=== PATIENT | male | born 1970 | race Caucasian/White ===

== ENCOUNTER → 2016-09-19 | Outpatient (CLI) | payer OTHER ==
[~2016-09-19] MED LIST: AMR2; AVN4; IBUP-1050 PO; INSUINJ; METFORMIN; WELLBUTRIN; ZANTAC; ZOCOR
[2016-09-19 17:31] LABS: BLOOD UREA NITROGEN 22 mg/dl (7-18); BUN/CREATININE RATIO 14.6 (10-20); CARBON DIOXIDE 28 mmol/L (21-32); CHLORIDE 101 mmol/L (98-107); GLUCOSE 235 mg/dl (70-99); POTASSIUM 4.8 mmol/L (3.5-5.1); SODIUM 137 mmol/L (136-145)
[2016-09-20 06:16] LABS: ESTIMATED AVERAGE GLUCOSE 206 mg/dl; HA1C FLAG Normal (Normal)
== END | disposition home or self-care (01) ==
LOC: C.LABBFT 08:58
PROVIDERS: ATTEND Nurse Practitioner Adult Health
DX: E11.29 Type 2 diabetes mellitus with other diabetic kidney complication (principal); E78.5 Hyperlipidemia, unspecified

== ENCOUNTER → 2016-12-25 | Outpatient (CLI) | payer OTHER ==
[2016-12-25 09:42] LABS: ESTIMATED AVERAGE GLUCOSE 160 mg/dl; HA1C FLAG Normal (Normal)
== END | disposition home or self-care (01) ==
LOC: C.LAB1850 07:06
PROVIDERS: ATTEND Nurse Practitioner Adult Health
DX: N18.9 Chronic kidney disease, unspecified (principal); I12.9 Hypertensive chronic kidney disease with stage 1 through stage 4 chronic kidney disease, or unspecified chronic kidney disease; E78.5 Hyperlipidemia, unspecified; E11.9 Type 2 diabetes mellitus without complications

== ENCOUNTER → 2017-05-07 | Outpatient (CLI) | payer OTHER ==
[2017-05-07 09:52] LABS: ESTIMATED AVERAGE GLUCOSE 166 mg/dl; HA1C FLAG Normal (Normal)
[2017-05-07 10:18] LABS: RATIO 9.9 mcg/mg (0-30.0)
[2017-05-07 10:23] LABS: ALT/SGPT 29 U/L (12-78); BLOOD UREA NITROGEN 32 mg/dl (7-18); BUN/CREATININE RATIO 18.9 (10-20); CALCIUM 9.1 mg/dl (8.5-10.1); CARBON DIOXIDE 26 mmol/L (21-32); CHLORIDE 103 mmol/L (98-107); CHOLESTEROL 118 mg/dl (0-200); GLUCOSE 196 mg/dl (70-99); POTASSIUM 4.6 mmol/L (3.5-5.1); SODIUM 135 mmol/L (136-145); TRIGLYCERIDES 105 mg/dl (0-150); VERY LOW DENSITY LIPOPROT CALC 21 mg/dl
[2017-05-07 10:26] LABS: ALB/GLOB RATIO 1.4 (0.9-2); ALKALINE PHOSPHATASE 85 U/L (45-117); AST/SGOT 15 U/L (15-37); CHOLESTEROL/HDL RATIO 2.6; HDL CHOLESTEROL 45 mg/dl; LDL CHOLESTEROL CALCULATED 52 mg/dl
== END | disposition home or self-care (01) ==
LOC: C.LAB1850 08:35
PROVIDERS: ATTEND Nurse Practitioner Adult Health
DX: E11.9 Type 2 diabetes mellitus without complications (principal); I10 Essential (primary) hypertension; E78.5 Hyperlipidemia, unspecified; R80.9 Proteinuria, unspecified

== ENCOUNTER → 2017-06-02 | Outpatient (CLI) | payer OTHER ==
--- NOTE | 2017-06-02 08:11 | DIAGNOSTIC IMAGING REPORT ---
RENAL ULTRASOUND HISTORY: N18.9 Chronic renal insufficiency COMPARISON: Renal ultrasound 08/28/2012. FINDINGS: Right kidney: 10.7 cm No hydronephrosis. Normal corticomedullary differentiation and cortical thickness. A 1.6 cm lower pole cyst. Left kidney: 10.5 cm. No hydronephrosis. Normal corticomedullary differentiation and cortical thickness. Bladder: No bladder wall thickening. The bilateral ureteral jets were identified. IMPRESSION: A 1.6 cm right renal cyst. Otherwise, normal renal ultrasound. Electronically signed by: Jonny Wray M.D. 06/02/2017 8:09 AM Dictated Date/Time: 06/02/2017 8:05 AM
== END | disposition home or self-care (01) ==
LOC: C.ULTR 07:25
PROVIDERS: ATTEND Nurse Practitioner Adult Health
DX: N18.9 Chronic kidney disease, unspecified (principal)

== ENCOUNTER → 2017-11-06 | Outpatient (CLI) | payer OTHER ==
--- NOTE | 2017-11-06 07:32 | DIAGNOSTIC IMAGING REPORT ---
R EXTREMITY NONVASCULAR LIMITED CLINICAL HISTORY: R22.9 Localized soft tissue swellingPlease schedule either first TECHNIQUE: Ultrasound COMPARISON STUDY: None FINDINGS: Small complex collection medially adjacent to the distal aspect of the right distal fifth metatarsal. This measures 2.5-1.0 cm. Right soft tissue is edematous. Diagnostic considerations include abscess versus hematoma. IMPRESSION: Small complex soft tissue collection immediately adjacent to the distal aspect fifth metatarsal. This potentially represents hematoma versus abscess. The above report was generated using voice recognition software. It may contain grammatical, syntax or spelling errors. Electronically signed by: Polo Cano M.D. 11/06/2017 7:30 AM Dictated Date/Time: 11/06/2017 7:27 AM
== END | disposition home or self-care (01) ==
LOC: C.ULTR 06:49
PROVIDERS: ATTEND Nurse Practitioner
DX: R22.31 Localized swelling, mass and lump, right upper limb (principal)

== ENCOUNTER → 2017-12-31 | Outpatient (CLI) | payer OTHER ==
[2018-01-01 06:39] LABS: HEMOGLOBIN A1C 7.4 % (4.5-5.6)
== END | disposition home or self-care (01) ==
LOC: C.LAB1850 15:18
PROVIDERS: ATTEND Nurse Practitioner Adult Health
DX: E11.9 Type 2 diabetes mellitus without complications (principal)

== ENCOUNTER 2021-05-16 03:09 | Inpatient (IN) ==
[2021-05-16] MEDS ORDERED: ASPIRIN CHEW 324 MG ONE (03:20)
[2021-05-16] MEDS ORDERED: NITROGLYCERIN SL 0.4 MG/TAB TAB ONE (03:21)
[2021-05-16] MEDS ORDERED: NITROGLYCERIN SL 0.4 MG/TAB TAB SL PRN ×2 (03:22→06:00)
[2021-05-16] MEDS ORDERED: ASPIRIN CHEW 324 MG PO STA (03:22)
--- NOTE | 2021-05-16 03:29 | Emergency Department Note ---
History of Present Illness General Chief Complaint: Chest Pain Stated Complaint: TIGHTNESS IN CHEST Time Seen by Provider: 05/16/21 03:16 History of Present Illness Maximum Pain Intensity: 7 This 50-year-old presents to the ER complaining of chest pain that radiates to his shoulders he was nauseated and diaphoretic Location: Chest Quality: Discomfort Severity: Moderate Duration: Today Timing: Today Context: Patient was concerned and came in Modifying factors: better with rest; worse with activity Patient denies abdominal pain, fever, chills, flulike illness, prior heart d isease. He did not check his blood sugars today. His father has heart disease at a young age. No prior stress or echo. Home Medications Medication Instructions Recorded Confirmed Type cholecalciferol (vitamin D3) 50 2,000 units PO QAM #30 tab 07/09/19 03/02/21 History mcg (2,000 unit) tablet fluocinonide 0.05 % topical cream 1 appln TOPICAL TID PRN #1 gm 11/16/19 03/02/21 History cyanocobalamin (vitamin B-12) 100 1,000 mcg PO QAM tab 04/03/20 03/02/21 History mcg tablet sildenafil (pulm.hypertension) 20 20 mg PO DAILY PRN #90 tab 08/28/20 03/02/21 Rx mg tablet insulin detemir U-100 100 unit/mL 40 unit SUBCUT QPM 09/15/20 03/02/21 History (3 mL) subcutaneous pen (Levemir FlexTouch U-100 Insulin) trazodone 100 mg tablet 100 mg PO HS 09/15/20 03/02/21 History lisinopril 20 mg tablet 20 mg PO QPM #90 tab 10/04/20 03/02/21 Rx simvastatin 20 mg tablet 20 mg PO QPM 90 Days #90 tab 10/04/20 03/02/21 Rx dapagliflozin 5 mg tablet (Farxiga) 5 mg PO DAILY #30 tab 12/04/20 03/02/21 Rx pen needle, diabetic 32 gauge x #2 box 01/10/21 03/02/21 Rx 5/32" (BD Geetha 2nd Gen Pen Needle) famotidine 20 mg tablet 20 mg PO BID #180 tab 02/26/21 03/02/21 Rx bupropion HCl 150 mg tablet,12 hr 300 mg PO QAM #180 ea 03/09/21 Rx sustained-release insulin aspart U-100 100 unit/mL See Rx Instructions SUBCUT TID #45 03/09/21 Rx (3 mL) subcutaneous pen (Novolog ml Flexpen U-100 Insulin aspart) Allergies Allergy/AdvReac Type Severity Reaction Status Date / Time azithromycin [From Zithromax] Allergy Rash Verified 05/16/21 05:01 Peanuts Allergy finger Uncoded 12/01/20 14:04 swelling Past Med/Surg History Medical History DM type 2 (diabetes mellitus, type 2) IDDM GERD (gastroesophageal reflux disease) HTN (hypertension) Hyperlipemia Surgical History History of nasal surgery History of tonsillectomy History of wisdom tooth extraction Family History Father Prostate cancer Coronary heart disease Diabetes Mother Diabetes Brother Diabetes Grandfather (Maternal) Diabetes Grandfather (Paternal) Diabetes Grandmother (Paternal) Diabetes Grandmother (Maternal) Diabetes Other No family history of adverse response to anesthesia Denies family history of Ovarian cancer Breast cancer Colorectal cancer Social History Smoking Status: Never smoker Second Hand Exposure: No; Hx Alcohol Use: Yes Alcohol type: beer Hx Substance Use: No Preferred Language: Cape Verdean Communication Ability: Effective Visual Impairment: No Limitations Hearing Ability: Normal Assistance Specialist Required: No Beliefs That Will Affect Care: None marital status: Current Living Situation: Spouse and Family Current Living Situation Comment: lives with and 2 children current occupational status: employed current occupation: [email or web address] Feels Safe at Home: Yes Childhood Exposure to Second-Hand Smoke: Yes caffeine: No during the past year weight has: remained stable Dental Care, Regularly: Yes Physical Activity Frequency: 1-2 Times per Week Seatbelt Use: always Sunscreen Use: Yes Assistive Devices: None Review of Systems A total of 10 systems reviewed and were otherwise negative Physical Exam Vital Signs Vital Signs - 24 hr 05/16/21 03:13 05/16/21 03:27 05/16/21 03:28 Temperature 36 C L Temperature Source Temporal Artery Scan Pulse Rate 54 L 60 Pulse Rate [Right Finger] Pulse Rhythm [Right Finger] Pulse Strength [Right Finger] Respiratory Rate 18 Respiratory Effort / Characteristics Respiratory Depth Respiratory Pattern Blood Pressure 127/78 Blood Pressure [Left Arm] Blood Pressure Mean 94 Blood Pressure Mean [Left Arm] Blood Pressure Position [Left Arm] Pulse Oximetry 98 97 Oxygen Delivery Method Room Air Room Air Room Air Sepsis Recent Fever Within 48 Hours No Sepsis New/Unexplained Change in Mental Status No Sepsis Action Taken by Nursing No Action Required 05/16/21 04:03 05/16/21 04:31 05/16/21 04:43 Temperature Temperature Source Pulse Rate 59 L Pulse Rate [Right Finger] 54 L 61 Pulse Rhythm [Right Finger] Regular Pulse Strength [Right Finger] Normal Respiratory Rate 18 20 16 Respiratory Effort / Characteristics Non-Labored Spontaneous Respiratory Depth Normal Normal Respiratory Pattern Regular Blood Pressure 136/84 Blood Pressure [Left Arm] 131/87 151/91 H Blood Pressure Mean 101 Blood Pressure Mean [Left Arm] 101 111 Blood Pressure Position [Left Arm] Sitting Pulse Oximetry 98 98 98 Oxygen Delivery Method Room Air Room Air Sepsis Recent Fever Within 48 Hours Sepsis New/Unexplained Change in Mental Status Sepsis Action Taken by Nursing 05/16/21 04:45 Temperature Temperature Source Pulse Rate 57 L Pulse Rate [Right Finger] Pulse Rhythm [Right Finger] Pulse Strength [Right Finger] Respiratory Rate 18 Respiratory Effort / Characteristics Respiratory Depth Respiratory Pattern Blood Pressure 136/92 Blood Pressure [Left Arm] Blood Pressure Mean 106 Blood Pressure Mean [Left Arm] Blood Pressure Position [Left Arm] Pulse Oximetry 99 Oxygen Delivery Method Sepsis Recent Fever Within 48 Hours Sepsis New/Unexplained Change in Mental Status Sepsis Action Taken by Nursing VITALS: Vitals are noted on the nurse's note and reviewed by myself. Vital signs stable. GENERAL: Pleasant male who appears in pain, in no acute distress, nondiaphoretic, well-developed well-nourished. SKIN: The skin was without rashes, erythema, edema, or bruising. There is no tenting of the skin. Capillary reflex less than 2 seconds. HEAD: Normocephalic atraumatic. EARS: External auditory canals clear, EYES: Pupils equal round and reactive to light and accommodation. Conjunctivae without injection, sclerae without icterus. Extraocular movements intact. NOSE: Patent, turbinates without inflammation or discharge. MOUTH: Mucous membranes moist. Pharynx without erythema or exudate. Uvula midline. Airway patent. Tongue does not deviate. NECK: Supple without nuchal rigidity. No lymphadenopathy. No thyromegaly. Cervical spine is nontender. No JVD. HEART: Regular rate and rhythm chest nontender to location LUNGS: Clear to auscultation bilaterally without wheezes, rales or rhonchi. No retractions or accessory muscle use. ABDOMEN: Positive bowel sounds x 4. Normal tympanic percussion. Soft, nontender, without masses or organomegaly. Jarivs sign negative. No guarding or rebound tenderness. No CVA tenderness MUSCULOSKELETAL: No muscle atrophy, erythema, or edema noted. NEURO: Patient was alert and oriented to person place and time. Normal sensation to light and sharp touch. No focal neurological deficits. Course Administered Medications Discontinued Medications Aspirin (Aspirin Chew 324 Mg) Confirm Administered Dose 324 mg .ROUTE .STK-MED ONE Stop: 05/16/21 03:21 Last Admin: 05/16/21 03:24 Dose: 324 mg Documented by: [id number] Aspirin (Aspirin Chew 324 Mg) 324 mg PO NOW STA Stop: 05/16/21 03:23 Last Admin: 05/16/21 03:25 Dose: Not Given Documented by: [id number] Nitroglycerin (Nitroglycerin Sl 0.4 Mg/Tab Tab) Confirm Administered Dose 0.4 mg .ROUTE .STK-MED ONE Stop: 05/16/21 03:22 Last Admin: 05/16/21 03:24 Dose: 0.4 mg Documented by: [id number] Medical Decision Making Medical Records Attestation: I reviewed the patient's medical records. Home Medications Current Medication List: was personally reviewed by me Laboratory Data Attestation: I reviewed the patient's lab results. Result diagrams: 05/16/21 03:20 05/16/21 03:20 Labs: Lab Results 05/16/21 05/16/21 05/16/21 Range/Units 03:20 03:20 03:20 WBC 8.98 (4.8-10.8) K/uL RBC 5.40 (4.7-6.1) M/uL Hgb 15.7 (14.0-18.0) g/dL Hct 46.4 (42-52) % MCV 85.9 (80-100) fL MCH 29.1 (25-34) pg MCHC 33.8 (32-36) g/dL RDW Std Deviation 41.0 (36.4-46.3) fL RDW Coeff of Diamond 13.0 (11.5-14.5) % Plt Count 293 (130-400) K/uL MPV 8.5 (7.4-10.4) fL Immature Gran % (Auto) 0.3 % Neut % (Auto) 64.3 % Lymph % (Auto) 23.2 % Zapata % (Auto) 10.0 % Eos % (Auto) 1.9 % Baso % (Auto) 0.3 % Neut # (Auto) 5.77 (1.4-6.5) K/uL Lymph # (Auto) 2.08 (1.2-3.4) K/uL Zapata # (Auto) 0.90 H (0.11-0.59) K/uL Eos # (Auto) 0.17 (0-0.5) K/uL Baso # (Auto) 0.03 (0-0.2) K/uL Immature Gran # (Auto) 0.03 H (0.00-0.02) K/uL APTT 24.8 (21.0-31.0) Seconds PTT Ratio 0.9 Sodium 135 L (136-145) mmol/L Potassium 4.2 (3.5-5.1) mmol/L Chloride 101 (98-107) mmol/L Carbon Dioxide 29 (21-32) mmol/L Anion Gap 5.0 (3-11) BUN 30 H (7-18) mg/dl Creatinine 1.68 H (0.6-1.4) mg/dl Est Cr Clr Drug Dosing 62.5 ml/min Est GFR ( Amer) 54.1 ml/min Est GFR (Non-Af Amer) 46.7 ml/min BUN/Creatinine Ratio 18.0 (10-20) Glucose 176 H (70-99) mg/dl Calcium 10.1 (8.5-10.1) mg/dl Total Bilirubin 0.6 (0.2-1) mg/dl AST 32 (15-37) U/L ALT 30 (12-78) U/L Alkaline Phosphatase 79 (45-117) U/L Troponin I 2.160 H* (0-0.045) ng/ml Total Protein 7.7 (6.4-8.2) gm/dl Albumin 4.3 (3.4-5.0) gm/dl Globulin 3.4 (2.5-4.0) gm/dl Albumin/Globulin Ratio 1.3 (0.9-2) Lipase 110 (73-393) U/L COVID-19 Eval Order 05/16/21 Range/Units 04:08 WBC (4.8-10.8) K/uL RBC (4.7-6.1) M/uL Hgb (14.0-18.0) g/dL Hct (42-52) % MCV (80-100) fL MCH (25-34) pg MCHC (32-36) g/dL RDW Std Deviation (36.4-46.3) fL RDW Coeff of Diamond (11.5-14.5) % Plt Count (130-400) K/uL MPV (7.4-10.4) fL Immature Gran % (Auto) % Neut % (Auto) % Lymph % (Auto) % Zapata % (Auto) % Eos % (Auto) % Baso % (Auto) % Neut # (Auto) (1.4-6.5) K/uL Lymph # (Auto) (1.2-3.4) K/uL Zapata # (Auto) (0.11-0.59) K/uL Eos # (Auto) (0-0.5) K/uL Baso # (Auto) (0-0.2) K/uL Immature Gran # (Auto) (0.00-0.02) K/uL APTT (21.0-31.0) Seconds PTT Ratio Sodium (136-145) mmol/L Potassium (3.5-5.1) mmol/L Chloride (98-107) mmol/L Carbon Dioxide (21-32) mmol/L Anion Gap (3-11) BUN (7-18) mg/dl Creatinine (0.6-1.4) mg/dl Est Cr Clr Drug Dosing ml/min Est GFR ( Amer) ml/min Est GFR (Non-Af Amer) ml/min BUN/Creatinine Ratio (10-20) Glucose (70-99) mg/dl Calcium (8.5-10.1) mg/dl Total Bilirubin (0.2-1) mg/dl AST (15-37) U/L ALT (12-78) U/L Alkaline Phosphatase (45-117) U/L Troponin I (0-0.045) ng/ml Total Protein (6.4-8.2) gm/dl Albumin (3.4-5.0) gm/dl Globulin (2.5-4.0) gm/dl Albumin/Globulin Ratio (0.9-2) Lipase (73-393) U/L COVID-19 Eval Order Covid19 at [facility] MDM Narrative Prior records/ancillary studies reviewed. Triage Nursing notes reviewed. Additional history obtained from nursing. The patient's history was concerning for chest pain. Differential diagnosis: Etiologies such as cardiac ischemia, aortic dissection, pulmonary embolism, pneumonia, pneumothorax, musculoskeletal, infections, pericarditis, myocarditis, esophageal rupture, gastrointestinal, as well as others were entertained. Physical examination: As above. ER treatment provided: An order was placed for continuous cardiac monitoring. The monitor shows a rate of 50-100 with a sinus rhythm. Aspirin, nitroglycerin On reassessment the patient felt better. Diagnostic interpretation by me: #1 the electrocardiogram was ordered for chest pain EKG: Normal sinus, T wave inversion in aVL, half block elevation in lead III and aVF, rate of 64. Impression normal sinus rhythm with concerns for ischemia in inferior leads interpreted by myself I think arrhythmia is unlikely. EKG shows no interval abnormalities such as QT prolongation or WPW. There are no findings to suggest Brugada syndrome. Cardiac monitoring in the emergency department reveals no tachycardic or bradycardic dysrhythmia. Hypertrophic cardiomyopathy was considered but there are no clear historical elements pointing toward this. EKG is not suggestive. The QRS voltage is not extremely large and there are no suggestive Q waves. #2the electrocardiogram was ordered for chest pain EKG: Normal sinus, T wave inversion in aVL, half block elevation in lead III and aVF. Impression normal sinus rhythm with concerns for ischemia in inferior leads interpreted by myself I think arrhythmia is unlikely. EKG shows no interval abnormalities such as QT prolongation or WPW. There are no findings to suggest Brugada syndrome. Cardiac monitoring in the emergency department reveals no tachycardic or bradycardic dysrhythmia. Hypertrophic cardiomyopathy was considered but there are no clear historical elements pointing toward this. EKG is not suggestive. The QRS voltage is not extremely large and there are no suggestive Q waves. #3the electrocardiogram was ordered for chest pain EKG: Normal sinus, ST elevations in the inferior leads with T wave inversion in aVL, Impression acute inferior wall NC interpreted by myself I think arrhythmia is unlikely. EKG shows no interval abnormalities such as QT prolongation or WPW. There are no findings to suggest Brugada syndrome. Cardiac monitoring in the emergency department reveals no tachycardic or bradycardic dysrhythmia. Hypertrophic cardiomyopathy was considered but there are no clear historical elements pointing toward this. EKG is not suggestive. The QRS voltage is not extremely large and there are no suggestive Q waves. The labs revealed positive troponin Imaging studies: Chest x-ray with no acute consolidation, pneumothorax or free air per my interpretation HEART SCORE: Hx: high/mod/low suspicion: 2 ECG: ST depression/nonspecific changes/normal: 1 Age: Greater than 65/45-64/less than 45: 1 Risk factors: (Hypertension, hyperlipidemia, diabetes, coronary disease, tobacco use, cocaine use): 2 Troponin: Greater than 2 times normal limits/1-2 times normal limits/normal: 2 Total: 8 Consultation: A consultation was placed with the hospitalist. The case was discussed and diagnostics were reviewed. The patient was evaluated in the ER for further treatment. Dr. Ospina from cardiology was consulted and will evaluate the patient taken to the [facility]. Heart alert was initiated Exam and history seem consistent with chest pain with concerns for NC type I. Serial EKGs were ordered. Third EKG was concerning for ST elevation in the inferior leads. He was given aspirin nitroglycerin. Heart score is high. X- ray was clear. Heart alert was initiated and medicine was consulted. By the evaluation outlined above emergent etiologies such as aortic dissection, pulmonary embolism, pneumonia, pneumothorax, infections, pericarditis, myocarditis, gastrointestinal, as well as others were deemed relatively unlikely. The pt informed about the findings as listed above. All questions were answered and pleased with the treatment. The chart was completed utilizing [employer] recognition software. Grammatical errors, random word insertions, pronoun errors, and incomplete sentences are an occassional consequence of this system due to software limitations, ambient noise, and hardware issues. Any formal questions or concerns about the content, text, or information contained within the body of this dictation should be directly addressed to the physician assistant director for clarification. Impression & Plan ST elevation NC (STEMI) Critical Care Time I have personally spent 35 minutes of critical care time in the direct management of this patient. This includes bedside care, interpretation of diagnostic studies, and testing, discussion with consultants, patient, and family members, and other required patient management activities. This 35 minutes is in excess of all separately billable procedures. Discharge Plan Visit Data Chief Complaint: Chest Pain Stated Complaint: TIGHTNESS IN CHEST ED Provider: Danni Orellana ED Midlevel Provider: Adiit Kowalski Discharge Problem: ST elevation NC (STEMI) Patient Disposition: Admitted As Inpatient Condition: Good Discharge Instructions Interventions: ED Discharge Assessment Last Done: 05/16/21 05:01 Forms Stand Alone Forms: My [facility] [employer] Prescriptions Prescriptions: No Action cholecalciferol (vitamin D3) 2,000 unit tablet 2,000 units PO QAM Qty: 30 RF: 0 fluocinonide 0.05 % cream 1 appln topical TID PRN (Reason: ud) Qty: 1 RF: 0 cyanocobalamin (vitamin B-12) 100 mcg tablet 1,000 mcg PO QAM RF: 0 sildenafil (pulm.hypertension) 20 mg tablet 20 mg PO DAILY PRN (Reason: sexual activity) Qty: 90 RF: 6 simvastatin 20 mg tablet 20 mg PO QPM 90 Days Qty: 90 RF: 3 lisinopril 20 mg tablet 20 mg PO QPM Qty: 90 RF: 3 Farxiga 5 mg tablet 5 mg PO DAILY Qty: 30 RF: 5 (DME) pen needle, diabetic [BD Geetha 2nd Gen Pen Needle] 32 gauge x 5/32" needle See Rx Instructions .ROUTE .MEDSUPPLY Qty: 2 RF: 1 famotidine 20 mg tablet 20 mg PO BID Qty: 180 RF: 3 insulin aspart U-100 [Novolog Flexpen U-100 Insulin] 100 unit/mL (3 mL) i nsulin pen See Rx Instructions subcut TID Qty: 45 RF: 3 bupropion HCl 150 mg tablet sustained-release 12 hr 300 mg PO QAM Qty: 180 RF: 3 trazodone 100 mg tablet 100 mg PO HS RF: 0 Levemir FlexTouch U-100 Insuln 100 unit/mL (3 mL) insulin pen 40 unit subcut QPM RF: 0 Referrals Referrals: Vasiliy Meeks III, MD [Primary Care Provider] - Discharge Problem: ST elevation NC (STEMI) Qualifiers: Involved coronary artery: unspecified coronary artery Qualified Code(s): I21.3 - ST elevation (STEMI) myocardial infarction of unspecified site
[2021-05-16 03:33] LABS: Basophils # (auto) 0.03 K/uL (0-0.2); Basophils % (auto) 0.3 %; Eosinophils # (auto) 0.17 K/uL (0-0.5); Eosinophils % (auto) 1.9 %; Hematocrit (blood only) 46.4 % (42-52); Hemoglobin 15.7 g/dL (14.0-18.0); Immature Granulocytes # (auto) 0.03 K/uL (0.00-0.02); Immature Granulocytes % (auto) 0.3 %; Lymphocytes # (auto) 2.08 K/uL (1.2-3.4); Lymphocytes % (auto) 23.2 %; Mean Corpuscular Hemoglobin 29.1 pg (25-34); Mean Corpuscular Hgb Conc 33.8 g/dL (32-36); Mean Corpuscular Volume 85.9 fL (80-100); Mean Platelet Volume 8.5 fL (7.4-10.4); Neutrophils # (auto) 5.77 K/uL (1.4-6.5); Neutrophils % (auto) 64.3 %; Platelet Count 293 K/uL (130-400); White Blood Count 8.98 K/uL (4.8-10.8)
[2021-05-16 03:48] LABS: Partial Thromboplastin Ratio 0.9; Partial Thromboplastin Time 24.8 Seconds (21.0-31.0)
[2021-05-16 03:49] LABS: Albumin Level 4.3 gm/dl (3.4-5.0); Calcium 10.1 mg/dl (8.5-10.1); Creatinine Clr Calc Pharmacy 62.5 ml/min; Est GFR (African American) 54.1 ml/min; Est GFR (Non-African American) 46.7 ml/min; Potassium 4.2 mmol/L (3.5-5.1)
[2021-05-16 04:17] LABS: Albumin Globulin Ratio 1.3 (0.9-2); Bilirubin,Total 0.6 mg/dl (0.2-1); Globulin 3.4 gm/dl (2.5-4.0); Total Protein 7.7 gm/dl (6.4-8.2); Troponin I 2.16 ng/ml (0-0.045)
[2021-05-16] MEDS ORDERED: HEPARIN (PORCINE) 1000 UNIT/ML 10 ML (CATH LAB USE ONLY) ONE ×2 (04:46→05:34)
[2021-05-16] MEDS ORDERED: MIDAZOLAM HCL 1 MG/ML 2ML VIAL ONE (04:46)
[2021-05-16] MEDS ORDERED: niCARdipine HCL INJ 2.5 MG/ML 10 ML AMP ONE (04:46)
[2021-05-16] MEDS ORDERED: fentaNYL citrate 100 MCG/2 ML VIAL ONE (04:46)
[2021-05-16] MEDS ORDERED: NITROGLYCERIN/D5W 100MCG/ML 20ML SYR ONE (04:47)
--- NOTE | 2021-05-16 05:05 | Pre Anesthesia Assessment ---
Date of Service May 16, 2021 Pre Sedation Assessment Vital Signs Temp Pulse Pulse Resp BP BP Pulse Ox 05/16/21 04:45 57 L 18 136/92 99 05/16/21 04:43 59 L 16 136/84 98 05/16/21 04:31 61 20 151/91 H 98 05/16/21 04:03 54 L 18 131/87 98 05/16/21 03:27 60 97 05/16/21 03:13 96.8 F L 54 L 18 127/78 98 Cardiovascular RRR, no murmur, no edema Respiratory normal respiratory effort, lungs clear to auscultation Pre-Sedation Airway Assessment Smoking Status: Never smoker Hx Sleep Apnea: No Hx Difficult Intubation: No Short, Thick Neck: No Thyromental Distance: < 3.5 Finger Breadths Oral Cavity: + WNL Mallampati Class: III ASA: ASA3 Procedure Planning Contraindications for Sedation: none Current Medications Reviewed: Yes Notes The planned sedation has been discussed with the patient. Informed Consent was obtained. I have identified the patient, determined the appropriateness of sedation and have assessed the patient immediately prior to the procedure. All medicine(s) and interventions are by my order.
--- NOTE | 2021-05-16 05:13 | Cardiology Consultation ---
Date of Consultation May 16, 2021 Assessment & Plan (1) ST elevation NM (STEMI): Presentation consistent with inferior STEMI and recommend proceeding with emergent cardiac catheterization and likely primary PCI. No apparent contraindications to procedure. Discussed risks, benefits, alternatives of procedure with patient and they are willing to proceed. Further recommendations pending findings of coronary angiography. History of Present Illness History of Present Illness 50-year-old man here with acute chest pain and ECG concerning for acute NM. Patient seen emergently in the ED after heart alert activated after serial ECGs. No prior cardiac history. Cardiac risk factors include type 2 diabetes on insulin, dyslipidemia, hypertension, stage III chronic kidney disease and family history of premature CAD involving his father (CAD in 40s). Other medical issues include GERD. Chest pain began approximately 10:30 AM yesterday. Initially thought symptoms were GERD. Chest pain stuttering throughout the day intermittently radiating to back and shoulders. No associated nausea, diaphoresis. Denies similar symptoms in the past. Hemodynamically stable on arrival. ECGs showed sinus bradycardia with more prominent inferior ST elevations on third ECG. Patient still endorsing mild chest discomfort approximately 3 out of 10. Troponin 2.2. Social history: , works for [employer]. Non-smoker. Allergies Allergy/AdvReac Type Severity Reaction Status Date / Time azithromycin [From Zithromax] Allergy Rash Verified 05/16/21 05:01 Peanuts Allergy finger Uncoded 12/01/20 14:04 swelling Home Medications Medication Instructions Recorded Confirmed Type cholecalciferol (vitamin D3) 50 2,000 units PO QAM #30 tab 07/09/19 03/02/21 History mcg (2,000 unit) tablet fluocinonide 0.05 % topical cream 1 appln TOPICAL TID PRN #1 gm 11/16/19 03/02/21 History cyanocobalamin (vitamin B-12) 100 1,000 mcg PO QAM tab 04/03/20 03/02/21 History mcg tablet sildenafil (pulm.hypertension) 20 20 mg PO DAILY PRN #90 tab 08/28/20 03/02/21 Rx mg tablet insulin detemir U-100 100 unit/mL 40 unit SUBCUT QPM 09/15/20 03/02/21 History (3 mL) subcutaneous pen (Levemir FlexTouch U-100 Insulin) trazodone 100 mg tablet 100 mg PO HS 09/15/20 03/02/21 History lisinopril 20 mg tablet 20 mg PO QPM #90 tab 10/04/20 03/02/21 Rx simvastatin 20 mg tablet 20 mg PO QPM 90 Days #90 tab 10/04/20 03/02/21 Rx dapagliflozin 5 mg tablet (Farxiga) 5 mg PO DAILY #30 tab 12/04/20 03/02/21 Rx pen needle, diabetic 32 gauge x #2 box 01/10/21 03/02/21 Rx 5/32" (BD Geetha 2nd Gen Pen Needle) famotidine 20 mg tablet 20 mg PO BID #180 tab 02/26/21 03/02/21 Rx bupropion HCl 150 mg tablet,12 hr 300 mg PO QAM #180 ea 03/09/21 Rx sustained-release insulin aspart U-100 100 unit/mL See Rx Instructions SUBCUT TID #45 03/09/21 Rx (3 mL) subcutaneous pen (Novolog ml Flexpen U-100 Insulin aspart) Patient History Medical History DM type 2 (diabetes mellitus, type 2) IDDM GERD (gastroesophageal reflux disease) HTN (hypertension) Hyperlipemia Surgical History History of nasal surgery History of tonsillectomy History of wisdom tooth extraction Family History Father Prostate cancer Coronary heart disease Diabetes Mother Diabetes Brother Diabetes Grandfather (Maternal) Diabetes Grandfather (Paternal) Diabetes Grandmother (Paternal) Diabetes Grandmother (Maternal) Diabetes Other No family history of adverse response to anesthesia Denies family history of Ovarian cancer Breast cancer Colorectal cancer Social History Smoking Status: Never smoker Second Hand Exposure: No; Hx Alcohol Use: Yes Alcohol type: beer Hx Substance Use: No Preferred Language: Bhutanese Communication Ability: Effective Visual Impairment: No Limitations Hearing Ability: Normal Functional Support Analyst Required: No Beliefs That Will Affect Care: None marital status: Current Living Situation: Spouse and Family Current Living Situation Comment: lives with and 2 children current occupational status: employed current occupation: PA [employer] Feels Safe at Home: Yes Childhood Exposure to Second-Hand Smoke: Yes caffeine: No during the past year weight has: remained stable Dental Care, Regularly: Yes Physical Activity Frequency: 1-2 Times per Week Seatbelt Use: always Sunscreen Use: Yes Assistive Devices: None Review of Systems Review of Systems: Not obtained due to emergency situation Physical Exam Physical Exam: General: Comfortable HEENT: Sclerae anicteric, Mask in place Lungs: Clear to auscultation bilaterally, no crackles or wheezes Cardiac: Regular rate and rhythm, no murmurs. Vascular: 2+ radial pulses Abdomen: Soft, nontender Extremities: Well perfused, no peripheral edema Neuro: Nonfocal Psych: Alert orient x3, normal affect and mood Results & Data ([facility]) Vital Signs (Past 12 Hours) Vital Signs Temp Pulse Pulse Resp BP BP Pulse Ox 05/16/21 04:45 57 L 18 136/92 99 05/16/21 04:43 59 L 16 136/84 98 05/16/21 04:31 61 20 151/91 H 98 05/16/21 04:03 54 L 18 131/87 98 05/16/21 03:27 60 97 05/16/21 03:13 96.8 F L 54 L 18 127/78 98 PG Care Time/CCT Total # of Minutes Spent Total Time Spent with Patient: Total time spent is greater than 50% in coordination of care (as documented) at patient's floor/unit and/or counseling patient: Coding Level of Care Code 92619 Inpt Consult Level [address] elevation NM (STEMI) I21.3 Involved coronary artery: unspecified coronary artery (1) ST elevation NM (STEMI) Involved coronary artery: unspecified coronary artery Qualified Code(s): I21.3 - ST elevation (STEMI) myocardial infarction of unspecified site
[2021-05-16] MEDS ORDERED: TICAGRELOR 90 MG TAB PO ONE (05:49)
--- NOTE | 2021-05-16 05:55 | Post Anesthesia Assessment ---
Date of Service May 16, 2021 Post Sedation Assessment Vital Signs Temp Pulse Pulse Resp BP BP Pulse Ox 05/16/21 04:45 57 L 18 136/92 99 05/16/21 04:43 59 L 16 136/84 98 05/16/21 04:31 61 20 151/91 H 98 05/16/21 04:03 54 L 18 131/87 98 05/16/21 03:27 60 97 05/16/21 03:13 96.8 F L 54 L 18 127/78 98 Recovery Score Activity: Moves 4 extremities Respiration: Deep Breath/Cough Circulation: +/-20% PreAnes Value Consciousness: Fully Awake Oxygen Saturation: O2 needed for >90% Discharge Sedation Level of Care: Fast Track Phase II Post Sedation Plan On clinical assessment, the patient appears to have tolerated the sedation without complications. Patient is recovering as anticipated. Patient will continue to be monitored by nursing and may be discharged when sedation discharge criteria are met per below protocol. Upon Completions of procedure up to 15 minutes continue every 5 minute vital signs and the P.A.R. score; then discharge to a Phase I or Fast Track to Phase II per the following guidelines: * Discharge Patient to appropriate Phase II area if PAR is 8 or greater or return to pre- procedure baseline. The post - procedure orders will be as d irected. * If PAR score is less than 8 or not return to pre-procedure baseline then patient will follow Phase I monitoring till PAR is reached for Phase II. The Phase I may be done in procedure room or may call to secure a Phase I area. * If naloxone or flumazenil are used for reversal, hold in Phase I for continued monitoring from when last reversal dose was given for a minimum of 60 minutes or longer pending the nurse and/or physician discretion of patient condition before discharge to Phase II. Please call the Sedation Physician to re-evaluate and complete post-note for discharge to Phase II area. Do NOT discharge from procedure sedation or Phase 1 until post- sedation evaluation note is complete by procedure /sedation MD Sedation Discharge Instructions to be given to the patient at discharge to home.
[2021-05-16] MEDS ORDERED: ACETAMINOPHEN 325 MG TAB PO PRN (05:56)
[2021-05-16] MEDS ORDERED: SODIUM CHLORIDE 0.9% 1000ML 1,000 ML IV SCH (06:00)
[2021-05-16] MEDS ORDERED: ICU PROTOCOL FOR HYPERGLYCEMIA PRN (06:05)
--- NOTE | 2021-05-16 06:13 | Cardiac Catheterization ---
[facility] Data: Cattle Sticker Cardiac Status Clinical evaluation leading to the procedure CAD Presenation: STEMI Anginal Classification: CCS IV Heart Failure: No Cardiogenic Shock within 24 Hours: No Cardiac Arrest within 24 Hours: No Imaging Studies Past 6 Months: No Stress Studies Past 6 Months: No Diagnostic Physicians Name: Da Ospina MD Status: Emergency Closure Device Percutaneous Entry Location: Radial Closure Device: Radial Band Recommendations: PCI without planned CABG PCI Indication: Immediate PCI for STEMI First Noted: First EKG Lesion Segment Name: distal RCA Culprit Artery: Yes Stenosis Prior to Rx (%): 100 Chronic Total Occlusion: No IVUS: No FFR: No Pre-Procedure BILLIE Flow: 0 Previously Treated Lesion: No Lesion Complexity: Non-High/Non-C Lesion Length (mm): 25 Thrombus Present: Yes Bifurcation Lesion: No Guidewire Across Lesion: Stenosis Post-Procedure (%): 0 Post-Procedure BILLIE Flow: 3 Devices(s) Deployed: Yes Yes Intraprocedure Events Significant Disection: No Perforation: No Cardiac Cath Procedure Full Procedure Date May 16, 2021 Pre-Procedure Diagnosis Pre-Procedure Diagnosis: STEMI AUC Score AUC Score: 9 Post-Procedure Diagnosis Post-Procedure Diagnosis: Severe CAD, Successful PCI and Normal Intracardiac Pressures Procedure(s) Performed Procedure(s) Performed: Coronary Angiography, Left Heart Cath and Drug Eluting Stent Career Development Consultant Da Ospina MD Remote Sensing Scientist(s) Erik Estimated Blood Loss Estimated Blood Loss: 10 Medication(s) Medication(s): Fentanyl, Heparin, Lidocaine 1%, Nicardipine, Nitroglycerin and Versed Medication(s): Ticagerlor Summary of Findings Indication: STEMI/Heart Alert Access: 6 Fr right radial artery Catheters: Ag[place], JL 3.5, JR4 guide Findings: LM -normal caliber, no significant disease LAD -medium caliber, 40% earlymid segment disease. Distal vessel small and wraps around apex. Gives off 3 diagonals. Medium caliber D1 and small D2 without significant disease. Circumflex -medium caliber, 20 to 30% proximal stenosis seen medium OM 2. RCA -dominant, medium caliber, mid segment luminal irregularities, acute 100% distal occlusion LVEDP -15 -- PCI -- Antithrombotic therapy: Heparin, ticagrelor Procedure: RCA cannulated with JR4 guide Small Equipment Operator 50 wire passed across lesion into distal PDA Distal RCA lesion predilated with 2.5 compliant balloon Dilated lesion stented with 3.0 x 15 mm Donate drug-eluting stent Stent post-dilated with 3.5 noncompliant balloon Noted to have residual at least moderate disease proximal to stent. Second OLIVIA placed to RCA (3.0 x 15 mm Nicasio) overlapping proximal aspect of initial stent Post procedure BILLIE 3 flow, stent well expanded with minimal residual stenosis and no apparent cardiac complications. Arterial Closure: TR band Summary: 1. Inferior STEMI/100% acute distal RCA occlusion 2. Mild non-culprit coronary artery disease - 40% earlymid LAD disease 20-30% proximal OM1 3. Normal intracardiac filling pressure 4. Successful PCI of distal RCA occlusion with 2 overlapping drug-eluting stents (3.0 x 15, 3.0 x 15 mm Nicasio; postdilated with 3.5 NC). Recommendations: Admit to ICU for continued monitoring Loaded with ticagrelor 180 mg in Cattle Sticker Continue dual-antiplatelet therapy for at least 1 year. Trend troponins until peak, Check Echo Uptitrate beta-priscilla/NAIN as BP allows High-dose statin Consult cardiac Rehab Hemodynamics Rest Ao:: 131/66/95 Final Ao: 136/79/106 LV: 140/15 Recommendations Recommendations: PCI without planned CABG Specimens Specimens: None Radiation Exposure (mGy) 1747 Contrast (mls) 95 Fluids (cc crystalloids) Fluids (cc crystalloids): 306 Drains Drains: None Anesthesia Moderate 5034-4975 Procedural Complication(s) None Disposition PCU I attest to the content of the Intraoperative Record and any orders documented therein. Any exceptions are noted below. [facility] Card Cath Procedure Codes Cardiac Catheterization Procedure 1: Cardiovascular Cath Procedures: 28811 Coronaries and LHC (+/-LV) Moderate Sedation Procedure 1: Sedation/Anesthesia: 02525 Mod Sedation by the same physician;Init15 Min Child Age 5 & Up Procedure 2: Sedation/Anesthesia: 01897 Mod Sedation by the same physician; Ea [id number] Minutes Stenting Procedure 1: Cardiovascular Stent Procedures: 67342 Perc transluminal revascularization of acute sub/total occl, aMI PG Care Time/CCT Total # of Minutes Spent Total Time Spent with Patient: Total time spent is greater than 50% in coordination of care (as documented) at patient's floor/unit and/or counseling patient:
--- NOTE | 2021-05-16 06:23 | History & Physical Report ---
Date of Service May 16, 2021 Assessment & Plan (1) ST elevation CA (STEMI): Plan: STEMI/hypertension- Admission to the ICU follow-up post heart alert and cardiac catheterization Status post 2 OLIVIA in RCA with good result Post procedure orders per interventional cardiology Dr. Ospina (2) COVID-19 virus infection: Plan: Asymptomatic COVID-19 infection. No aggressive treatment He will be placed in a negative pressure isolation room (3) Controlled type 2 diabetes mellitus, with long-term current use of insulin: Plan: Hold dapagliflozin and subcu 3 times daily insulin aspart. Continue Levemir 40 units subcu every evening Place on Accu-Cheks before meals and at bedtime with NovoLog coverage per scale ICU protocol (4) Hypertension: Plan: See above (5) Dyslipidemia: Plan: Hold simvastatin 20 mg daily. Change to high-dose statin per Dr. Bhavesh Chavarria (6) Stage 3 chronic kidney disease: Plan: Creatinine 1.68 upon admission, with range 1.50-1.79 Place on NSS status post catheterization dye load. Hold lisinopril Recheck laboratories every morning (7) Depression: Plan: Continue sustained release bupropion hydrochloride 150 mg p.o. twice daily Continue trazodone 100 hs (8) Vitamin B 12 deficiency: Plan: Continue cyndee B12 1000 mcg p.o. daily (9) GERD (gastroesophageal reflux disease): Plan: Continue famotidine 20 mg p.o. twice daily History of Present Illness Chief Complaint: The patient reports to the emergency department with complaint of chest pain radiating to bilateral shoulders, accompanied by nausea and sweating. Primary Care Provider: Vasiliy Meeks MD The patient is a 50-year-old male with type smell history including diabetes mellitus, erectile dysfunction, autonomic, hypertension, dyslipidemia, CKD stage III, depression, vitamin D deficiency, chronic interstitial cystitis and right rotator cuff tendinitis. The patient works in a physically active job, and did not have any issues with symptoms until earlier in the day. He reports developing substernal chest discomfort, with radiation to his shoulders, and had brief episode of nausea and sweats. Because of the symptoms he presented to the ED for assessment. Work-up in the emergency department included a series of 3 EKGs, with the third showing progressive ST segment elevation in inferior leads. Troponin upon admission was 2.1. With his combination of findings, the patient was made a heart alert, and was taken emergently to the Creative Services Manager by Dr. Da Ospina. Patient was found to have a near complete RCA occlusion, with placement of 2 drug-eluting stents, with good result. Patient will be taken to the ICU for follow-up care there. Allergies Allergy/AdvReac Type Severity Reaction Status Date / Time azithromycin [From Zithromax] Allergy Rash Verified 05/16/21 05:01 Peanuts Allergy finger Uncoded 12/01/20 14:04 swelling Home Medications Medication Instructions Recorded Confirmed Type cholecalciferol (vitamin D3) 50 2,000 units PO QAM #30 tab 07/09/19 03/02/21 History mcg (2,000 unit) tablet fluocinonide 0.05 % topical cream 1 appln TOPICAL TID PRN #1 gm 11/16/19 03/02/21 History cyanocobalamin (vitamin B-12) 100 1,000 mcg PO QAM tab 04/03/20 03/02/21 History mcg tablet sildenafil (pulm.hypertension) 20 20 mg PO DAILY PRN #90 tab 08/28/20 03/02/21 Rx mg tablet insulin detemir U-100 100 unit/mL 40 unit SUBCUT QPM 09/15/20 03/02/21 History (3 mL) subcutaneous pen (Levemir FlexTouch U-100 Insulin) trazodone 100 mg tablet 100 mg PO HS 09/15/20 03/02/21 History lisinopril 20 mg tablet 20 mg PO QPM #90 tab 10/04/20 03/02/21 Rx simvastatin 20 mg tablet 20 mg PO QPM 90 Days #90 tab 10/04/20 03/02/21 Rx dapagliflozin 5 mg tablet (Farxiga) 5 mg PO DAILY #30 tab 12/04/20 03/02/21 Rx pen needle, diabetic 32 gauge x #2 box 01/10/21 03/02/21 Rx 5/32" (BD Geetha 2nd Gen Pen Needle) famotidine 20 mg tablet 20 mg PO BID #180 tab 02/26/21 03/02/21 Rx bupropion HCl 150 mg tablet,12 hr 300 mg PO QAM #180 ea 03/09/21 Rx sustained-release insulin aspart U-100 100 unit/mL See Rx Instructions SUBCUT TID #45 03/09/21 Rx (3 mL) subcutaneous pen (Novolog ml Flexpen U-100 Insulin aspart) Past Med/Surg History Medical History (Updated 05/16/21 @ 06:15 by Lacho Espitia MD) DM type 2 (diabetes mellitus, type 2) IDDM GERD (gastroesophageal reflux disease) HTN (hypertension) Hyperlipemia Vitamin B 12 deficiency Surgical History History of nasal surgery History of tonsillectomy History of wisdom tooth extraction Family History Father Prostate cancer Coronary heart disease Diabetes Mother Diabetes Brother Diabetes Grandfather (Maternal) Diabetes Grandfather (Paternal) Diabetes Grandmother (Paternal) Diabetes Grandmother (Maternal) Diabetes Other No family history of adverse response to anesthesia Denies family history of Ovarian cancer Breast cancer Colorectal cancer Social History Smoking Status: Never smoker Second Hand Exposure: No; Hx Alcohol Use: Yes Alcohol type: beer Hx Substance Use: No Preferred Language: Azerbaijani Communication Ability: Effective Visual Impairment: No Limitations Hearing Ability: Normal Gaming Commissioner Required: No Beliefs That Will Affect Care: None marital status: Current Living Situation: Spouse Current Living Situation Comment: lives with and 2 children current occupational status: employed current occupation: PA [employer] Other Information That Helps Us Care for You: No Feels Safe at Home: Yes Safety Concerns: Feels Safe At This Time Childhood Exposure to Second-Hand Smoke: Yes caffeine: No during the past year weight has: remained stable Dental Care, Regularly: Yes Physical Activity Frequency: 1-2 Times per Week Seatbelt Use: always Sunscreen Use: Yes Assistive Devices: None Review of Systems Review of Systems: The patient denies palpitations, cough, lower extremity swelling, sore throat, fevers, chills, sweats, weight change, fatigue, vomiting, diarrhea , constipation, abdominal pain, pelvic pain, blood in urine or stool, dysuria, urinary frequency or urgency, lightheadedness, dizziness, headache, memory loss, loss of consciousness, rash, abnormal bruising or bleeding, imbalance, focal or generalized weakness, numbness or tingling in arms or legs, generalized arthralgias or myalgias, back or neck pain, or night sweats. The review of systems is otherwise negative other than for that already noted above, and at least 10 systems have been reviewed. Physical Exam Physical Exam: The patient is awake, alert and oriented 3, well developed and well nourished, normocephalic and atraumatic, lying in bed and in no acute distress. HEENT--PERRL, EOMI, mucous membranes and oropharynx normal. Neck--supple. No JVD. No bruits. Thyroid normal, trachea midline, no adenopathy. Heart--normal S1 and S2. No murmurs, rubs or gallops. Lungs--clear bilaterally, no respiratory distress, no accessory muscle use. Abdomen--normal bowel sounds and soft. Nontender. Nondistended, no hernias or masses, no organomegaly. Extremities--no cyanosis or clubbing. No edema. Dermatologic--normal skin turgor, normal color, no abnormal lymph nodes, no rash. Neurologic--cranial nerves II through XII grossly intact. Rheumatologic--normal range of motion. Psychiatric--normal affect. Results & Data Results & Data ([facility]) Vital Signs (Past 12 Hours) Vital Signs Temp Pulse Pulse Resp BP BP Pulse Ox 05/16/21 04:45 57 L 18 136/92 99 05/16/21 04:43 59 L 16 136/84 98 05/16/21 04:31 61 20 151/91 H 98 05/16/21 04:03 54 L 18 131/87 98 05/16/21 03:27 60 97 05/16/21 03:13 96.8 F L 54 L 18 127/78 98 Laboratory Results Laboratory Results WBC 8.98 K/uL (4.8-10.8) 05/16/21 03:20 RBC 5.40 M/uL (4.7-6.1) 05/16/21 03:20 Hgb 15.7 g/dL (14.0-18.0) 05/16/21 03:20 Hct 46.4 % (42-52) 05/16/21 03:20 MCV 85.9 fL (80-100) 05/16/21 03:20 MCH 29.1 pg (25-34) 05/16/21 03:20 MCHC 33.8 g/dL (32-36) 05/16/21 03:20 RDW Std Deviation 41.0 fL (36.4-46.3) 05/16/21 03:20 RDW Coeff of Diamond 13.0 % (11.5-14.5) 05/16/21 03:20 Plt Count 293 K/uL (130-400) 05/16/21 03:20 MPV 8.5 fL (7.4-10.4) 05/16/21 03:20 Immature Gran % (Auto) 0.3 % 05/16/21 03:20 Neut % (Auto) 64.3 % 05/16/21 03:20 Lymph % (Auto) 23.2 % 05/16/21 03:20 Greene % (Auto) 10.0 % 05/16/21 03:20 Eos % (Auto) 1.9 % 05/16/21 03:20 Baso % (Auto) 0.3 % 05/16/21 03:20 Neut # (Auto) 5.77 K/uL (1.4-6.5) 05/16/21 03:20 Lymph # (Auto) 2.08 K/uL (1.2-3.4) 05/16/21 03:20 Greene # (Auto) 0.90 K/uL (0.11-0.59) H 05/16/21 03:20 Eos # (Auto) 0.17 K/uL (0-0.5) 05/16/21 03:20 Baso # (Auto) 0.03 K/uL (0-0.2) 05/16/21 03:20 Immature Gran # (Auto) 0.03 K/uL (0.00-0.02) H 05/16/21 03:20 APTT 24.8 Seconds (21.0-31.0) 05/16/21 03:20 PTT Ratio 0.9 05/16/21 03:20 Activ Coag Time Kaolin 224 SECONDS (94-140) H 05/16/21 05:52 Sodium 135 mmol/L (136-145) L 05/16/21 03:20 Potassium 4.2 mmol/L (3.5-5.1) 05/16/21 03:20 Chloride 101 mmol/L (98-107) 05/16/21 03:20 Carbon Dioxide 29 mmol/L (21-32) 05/16/21 03:20 Anion Gap 5.0 (3-11) 05/16/21 03:20 BUN 30 mg/dl (7-18) H 05/16/21 03:20 Creatinine 1.68 mg/dl (0.6-1.4) H 05/16/21 03:20 Est Cr Clr Drug Dosing 62.5 ml/min 05/16/21 03:20 Est GFR ( Amer) 54.1 ml/min 05/16/21 03:20 Est GFR (Non-Af Amer) 46.7 ml/min 05/16/21 03:20 BUN/Creatinine Ratio 18.0 (10-20) 05/16/21 03:20 Glucose 176 mg/dl (70-99) H 05/16/21 03:20 Calcium 10.1 mg/dl (8.5-10.1) 05/16/21 03:20 Total Bilirubin 0.6 mg/dl (0.2-1) 05/16/21 03:20 AST 32 U/L (15-37) 05/16/21 03:20 ALT 30 U/L (12-78) 05/16/21 03:20 Alkaline Phosphatase 79 U/L (45-117) 05/16/21 03:20 Troponin I 2.160 ng/ml (0-0.045) H* 05/16/21 03:20 Total Protein 7.7 gm/dl (6.4-8.2) 05/16/21 03:20 Albumin 4.3 gm/dl (3.4-5.0) 05/16/21 03:20 Globulin 3.4 gm/dl (2.5-4.0) 05/16/21 03:20 Albumin/Globulin Ratio 1.3 (0.9-2) 05/16/21 03:20 Lipase 110 U/L (73-393) 05/16/21 03:20 COVID-19 Eval Order Covid19 at [facility] 05/16/21 04:08 SARS-CoV-2 (PCR) POSITIVE (Negative) A* 05/16/21 04:08 ECG Additional Comments: Serially EGDs x3 performed, with normal sinus rhythm found in each. There was progressive ST segment elevation in leads II, III and aVF. Code Status & VTE Plan Code Status Full code Critical Care Time 40 minutes PG Care Time/CCT Total # of Minutes Spent Total Time Spent with Patient: Total time spent is greater than 50% in coordination of care (as documented) at patient's floor/unit and/or counseling patient: Coding Level of Care Code 94571 Initial Inpt Care Lvl [address] elevation CA (STEMI) I21.3 Involved coronary artery: unspecified coronary artery COVID-19 virus infection U07.1 Controlled type 2 diabetes mellitus, with long-term current use of insulin E11.9; Z79.4 Hypertension I10 Dyslipidemia E78.5 Stage 3 chronic kidney disease N18.3 Depression F32.9 Vitamin B 12 deficiency E53.8 GERD (gastroesophageal reflux disease) K21.9 (1) ST elevation CA (STEMI) Involved coronary artery: unspecified coronary artery Qualified Code(s): I21.3 - ST elevation (STEMI) myocardial infarction of unspecified site
--- NOTE | 2021-05-16 06:37 | XRay Report ---
XR chest 1V portable CLINICAL HISTORY: Chest Pain COMPARISON STUDY: Chest radiograph December 27, 2007. FINDINGS: Lung volumes are normal. Lungs are clear. There is no pneumothorax or pleural effusion. Car diac size is normal. Mediastinal contours are normal. There is no evidence for pulmonary edema. IMPRESSION: No acute cardiopulmonary findings. ACT 112: Negative or not required by law. Electronically signed by: Jer Moncada M.D. 05/16/2021 6:36 AM
[2021-05-16] MEDS ORDERED: DEXTROSE 50% 50 ML SYRINGE IV PRN (07:00)
[2021-05-16] MEDS ORDERED: GLUCAGON FOR INJ 1 MG VIAL IM PRN (07:00)
[2021-05-16] MEDS ORDERED: GLUCOSE 40% GEL 15 GM TUBE PO PRN (07:00)
[2021-05-16] MEDS ORDERED: CARBOHYDRATES FOR HYPOGLYCEMIA PO PRN (07:00)
[2021-05-16] MEDS ORDERED: GLUCOSE 10 TABS/TUBE PO PRN (07:00)
[2021-05-16] MEDS: CHOLECALCIFEROL 1,000 UNITS 25 MCG TAB PO SCH (08:39)
[2021-05-16] MEDS: FAMOTIDINE 20 MG TAB PO SCH ×2 (08:39→20:49)
[2021-05-16] MEDS: CYANOCOBALAMIN 500 MCG TABLET (VITAMIN B-12) PO SCH (08:39)
[2021-05-16] MEDS: buPROPion SR 150 MG TABCR PO SCH (08:42)
[2021-05-16] MEDS: lisinopril 5 MG TAB PO SCH ×2 (08:43→20:49)
[2021-05-16] MEDS: PANTOprazole 40 MG TAB PO SCH (08:43)
[2021-05-16] MEDS: ATORVASTATIN 40 MG TAB PO SCH (08:43)
[2021-05-16] MEDS: ASPIRIN 81 MG ECTAB PO SCH (08:43)
[2021-05-16] MEDS: INSULIN ASPART 100 UNITS/ML 3 ML PEN SC SCH ×4 (08:45→20:47)
[2021-05-16] MEDS ORDERED: METOPROLOL TARTRATE 25 MG TAB PO SCH (09:00)
--- NOTE | 2021-05-16 10:22 | XCELERA ---
[id number] \\[id number]
--- NOTE | 2021-05-16 12:02 | History & Physical Bridge Note ---
Date of Service May 16, 2021 History & Physical Bridge Note I have examined the patient, reviewed the History & Physical and in the interval since the performance of the History & Physical I have noted the following changes of clinical significance: patient resting comfortably, no chest pain, no dyspnea, no fever eating well reviewed labs, Cr is 1.68, troponin is 17 d/w Dr. Ospina, he can be d/c tomorrow as long as he remains stable
--- NOTE | 2021-05-16 15:31 | Electrocardiogram Report ---
Test Reason : Blood Pressure : / mmHG Vent. Rate : 064 BPM Atrial Rate : 064 BPM P-R Int : 146 ms QRS Dur : 088 ms QT Int : 398 ms P-R-T Axes : 053 064 079 degrees QTc Int : 410 ms Normal sinus rhythm with sinus arrhythmia Nonspecific ST abnormality Abnormal ECG When compared with ECG of 27-DEC-2007 00:37, No significant change was found Confirmed by Yosef Chester ([id number]) on 05/16/2021 3:30:54 PM Referred By: REFERRED SELF Confirmed By:Yosef Chester
--- NOTE | 2021-05-16 15:31 | Electrocardiogram Report ---
Test Reason : Blood Pressure : / mmHG Vent. Rate : 056 BPM Atrial Rate : 056 BPM P-R Int : 132 ms QRS Dur : 084 ms QT Int : 418 ms P-R-T Axes : 029 053 073 degrees QTc Int : 403 ms Sinus bradycardia Inferior ST abnormality Abnormal ECG When compared with ECG of 16-MAY-2021 03:19, (unconfirmed) No significant change was found Confirmed by Yosef Chester ([id number]) on 05/16/2021 3:31:39 PM Referred By: REFERRED SELF Confirmed By:Yosef Chester
--- NOTE | 2021-05-16 15:32 | Electrocardiogram Report ---
Test Reason : Blood Pressure : / mmHG Vent. Rate : 062 BPM Atrial Rate : 062 BPM P-R Int : 142 ms QRS Dur : 082 ms QT Int : 392 ms P-R-T Axes : 055 047 068 degrees QTc Int : 397 ms Normal sinus rhythm Inferior ST abnormality Abnormal ECG When compared with ECG of 16-MAY-2021 04:20, (unconfirmed) No significant change was found Confirmed by Yosef Chester ([id number]) on 05/16/2021 3:32:29 PM Referred By: REFERRED SELF Confirmed By:Yosef Chester
--- NOTE | 2021-05-16 15:32 | Electrocardiogram Report ---
Test Reason : Blood Pressure : / mmHG Vent. Rate : 061 BPM Atrial Rate : 061 BPM P-R Int : 134 ms QRS Dur : 084 ms QT Int : 402 ms P-R-T Axes : 016 052 079 degrees QTc Int : 404 ms Normal sinus rhythm ST elevation consider inferior injury or acute infarct ACUTE NV / STEMI Consider right ventricular involvement in acute inferior infarct Abnormal ECG When compared with ECG of 16-MAY-2021 03:49, (unconfirmed) No significant change was found Confirmed by Yosef Chester ([id number]) on 05/16/2021 3:31:47 PM Referred By: REFERRED SELF Confirmed By:Yosef Chester
[2021-05-16] MEDS: METOPROLOL TARTRATE 25 MG TAB PO SCH (20:48)
[2021-05-16] MEDS ORDERED: INSULIN DETEMIR FLEXPEN/FLEX TOUCH 100 UNITS/ML 3ML SQ SCH (21:00)
[2021-05-16] MEDS ORDERED: traZODone HCL 100 MG TAB PO SCH (21:00)
[2021-05-16] MEDS: TICAGRELOR 90 MG TAB PO SCH (21:20)
[2021-05-17 06:48] LABS: Basophils # (auto) 0.02 K/uL (0-0.2); Basophils % (auto) 0.2 %; Eosinophils # (auto) 0.19 K/uL (0-0.5); Eosinophils % (auto) 2.1 %; Hematocrit (blood only) 45.2 % (42-52); Hemoglobin 15.3 g/dL (14.0-18.0); Immature Granulocytes # (auto) 0.06 K/uL (0.00-0.02); Immature Granulocytes % (auto) 0.7 %; Lymphocytes # (auto) 1.66 K/uL (1.2-3.4); Lymphocytes % (auto) 18.6 %; Mean Corpuscular Hemoglobin 28.8 pg (25-34); Mean Corpuscular Hgb Conc 33.8 g/dL (32-36); Mean Corpuscular Volume 85.1 fL (80-100); Mean Platelet Volume 8.7 fL (7.4-10.4); Monocytes # (auto) 1.15 K/uL (0.11-0.59); Monocytes % (auto) 12.9 %; Neutrophils # (auto) 5.84 K/uL (1.4-6.5); Neutrophils % (auto) 65.5 %; Platelet Count 256 K/uL (130-400); RDW Standard Deviation 40.4 fL (36.4-46.3); Red Blood Count 5.31 M/uL (4.7-6.1); White Blood Count 8.92 K/uL (4.8-10.8)
[2021-05-17 07:20] LABS: BUN Creatinine Ratio 20.2 (10-20); Calcium 9.3 mg/dl (8.5-10.1); Creatinine Clr Calc Pharmacy 64.1 ml/min; Est GFR (African American) 55.7 ml/min; Potassium 4.1 mmol/L (3.5-5.1)
[2021-05-17] MEDS: INSULIN ASPART 100 UNITS/ML 3 ML PEN SC SCH (08:17)
[2021-05-17] MEDS: FAMOTIDINE 20 MG TAB PO SCH (08:18)
[2021-05-17] MEDS: METOPROLOL TARTRATE 25 MG TAB PO SCH (08:18)
[2021-05-17] MEDS: ATORVASTATIN 40 MG TAB PO SCH (08:19)
[2021-05-17] MEDS: ASPIRIN 81 MG ECTAB PO SCH (08:19)
[2021-05-17] MEDS: lisinopril 5 MG TAB PO SCH (08:19)
[2021-05-17] MEDS: CHOLECALCIFEROL 1,000 UNITS 25 MCG TAB PO SCH (08:19)
[2021-05-17] MEDS: buPROPion SR 150 MG TABCR PO SCH (08:19)
[2021-05-17] MEDS: CYANOCOBALAMIN 500 MCG TABLET (VITAMIN B-12) PO SCH (08:19)
[2021-05-17] MEDS: PANTOprazole 40 MG TAB PO SCH (08:19)
[2021-05-17] MEDS: TICAGRELOR 90 MG TAB PO SCH (08:26)
[2021-05-17 08:42] LABS: Estimated Average Glucose 183 mg/dl
--- NOTE | 2021-05-17 09:16 | Cardiology Progress Note ---
Date of Service May 17, 2021 Assessment & Plan (1) ST elevation IA (STEMI): Plan: 2. Mild non-culprit disease. 3. Preserved LV function 4. Type 2 DM Doing well. From a cardiac standpoint OK for discharge. Home on DAPT with ASA/Ticagrelor, increased statin. Continue low dose metoprolol. Would reduce home lisinopril 10 mg daily. Follow-up with me in 1-2 weeks. Admission and Anticipated Discharge Date Admission Date: May 16, 2021 Subjective Feeling well. No chest pain. No other new concerns. Tele reviewed - sinus alan Review of Systems Review of Systems: All systems reviewed & are unremarkable except as noted in HPI & below Physical Exam Physical Exam: General: Comfortable HEENT: Sclerae anicteric Lungs: Clear to auscultation bilaterally Cardiac: Regular rate and rhythm, no murmurs. Vascular: Right radial artery access site with no ecchymosis, hematoma. Distal pulse and sensation intact. Abdomen: Soft, nontender Extremities: Well perfused, no peripheral edema Neuro: Nonfocal Psych: Alert orient x3, normal affect and mood Results & Data ([facility]) Vital Signs (Past 12 Hours) Vital Signs Temp Pulse Pulse Pulse Resp BP Pulse Ox 05/17/21 08:00 67 05/17/21 07:34 97.7 F 54 L 20 97/51 L 97 05/17/21 03:54 98.4 F 60 18 92/52 L 97 05/17/21 00:00 48 L 05/16/21 23:52 98.2 F 49 L 18 93/47 L 96 PG Care Time/CCT Total # of Minutes Spent Total Time Spent with Patient: Total time spent is greater than 50% in coordination of care (as documented) at patient's floor/unit and/or counseling patient: Coding Level of Care Code 39513 Subseq Hosp Care Lvl [address] elevation IA (STEMI) I21.3 Involved coronary artery: unspecified coronary artery (1) ST elevation IA (STEMI) Involved coronary artery: unspecified coronary artery Qualified Code(s): I21.3 - ST elevation (STEMI) myocardial infarction of unspecified site
--- NOTE | 2021-05-17 09:33 | Discharge Summary ---
Date of Service May 17, 2021 Admission HPI Per Admitting Provider The patient is a 50-year-old male with type smell history including diabetes mellitus, erectile dysfunction, autonomic, hypertension, dyslipidemia, CKD stage III, depression, vitamin D deficiency, chronic interstitial cystitis and right rotator cuff tendinitis. The patient works in a physically active job, and did not have any issues with symptoms until earlier in the day. He reports developing substernal chest discomfort, with radiation to his shoulders, and had brief episode of nausea and sweats. Because of the symptoms he presented to the ED for assessment. Work-up in the emergency department included a series of 3 EKGs, with the third showing progressive ST segment elevation in inferior leads. Troponin upon admission was 2.1. With his combination of findings, the patient was made a heart alert, and was taken emergently to the [facility] by Dr. Da Ospina. Patient was found to have a near complete RCA occlusion, with placement of 2 drug-eluting stents, with good result. Patient will be taken to the ICU for follow-up care there. Principal Diagnosis STEMI Discharge Exam General: well developed, well nourished, no acute distress, comfortable Neck: supple, trachea midline, normal thyroid Lungs: clear to auscultation bilaterally, normal respiratory effort, no accessory muscle use, no distress Heart: regular S1 and S2, no murmur, peripheral pulses normal, capillary refill normal, no edema Abdomen: soft, NT, ND, + BS, no hepatomegaly, normal to percussion Extremities: normal in appearance, no cyanosis, no petechiae, strength is 5/5 bilaterally Neuro: awake, cooperative, moves all extremities, no focal motor deficits, CN II-XII intact, sensation in extremities intact, normal speech Skin: warm, dry, no rash, normal turgor Psych: Awake, alert oriented x 3, euthymic affect Discharge Data Allergies Allergy/AdvReac Type Severity Reaction Status Date / Time azithromycin [From Zithromax] Allergy Rash Verified 05/16/21 05:01 Peanuts Allergy finger Uncoded 12/01/20 14:04 swelling Consultations 05/16/21 03:56 ED Decision to Admit Stat 05/16/21 06:05 Consult Cardiac Rehabilitation Routine 05/16/21 07:30 Consult Cardiology Routine Procedures Performed Operation Date: 05/16/21 05:00 Actual Procedures p Aspiration/PCI w/OLIVIA for Stemi - Yoav Ospina MD s Cineradiography w/Routine Exam - Yoav Ospina MD s Cath, Left with Cors and Vent - Yoav Ospina MD Ordered Studies 05/16/21 04:47 CL Cath Imgs for PACS use only Stat Hospital Course (1) ST elevation CA (STEMI): STEMI Admission to the ICU follow-up post heart alert and cardiac catheterization Status post 2 OLIVIA in RCA with good result Post procedure orders per interventional cardiology Dr. Ospina patient feeling well, no chest pain or pressure both at rest and when walking continue aspirin and Brilinta Lipitor 80mg daily added metoprolol 12.5mg BID and lisinopril 5mg added for cardiac protection nitro SL PRN script provided follow up with cardiology, no strenuous activity until cleared by cardiology (2) COVID-19 virus infection: Asymptomatic COVID-19 infection. no hypoxia, lungs clear on CXR no indication for treatment (3) Controlled type 2 diabetes mellitus, with long-term current use of insulin: resume dapagliflozin on discharge and TID insulin (4) Hypertension: See above (5) Dyslipidemia: change simvastatin to atorvastatin 80mg daily due to CAD and STEMI (6) Stage 3 chronic kidney disease: Creatinine 1.68 upon admission, with range 1.50-1.79 Place on NSS status post catheterization dye load. Cr remains stable, making urine, electrolytes stable (7) Depression: Continue sustained release bupropion hydrochloride 150 mg p.o. twice daily Continue trazodone 100 hs (8) Vitamin B 12 deficiency: Continue cyndee B12 1000 mcg p.o. daily (9) GERD (gastroesophageal reflux disease): Continue famotidine 20 mg p.o. twice daily Total Time Total Time Spent Total Time Spent (In Minutes): 33 minutes Total Time Includes: Examination of the Patient, Discharge Planning, Medication Reconciliation and Communication With Other Providers (Dr. Ospina) Discharge Plan Discharge Items Patient Disposition: Home - Self-Care Reason For Visit: ACUTE CA Discharge Diagnosis: STEMI status post coronary stent in right coronary artery Diabetes Dyslipidemia Condition on Discharge: Good Goals: medical management of coronary disease follow up with cardiology Activity: Per Instructions section Sexual Activity: Wait until after follow-up appointment Exercise/Sports: Wait until after follow-up appointment Driving/Machine Use: Resume 1 day after discharge Weightbearing: Full weightbearing Non-emergency contact: Primary Care Provider and [employer] Call non-emergency contact if: you have any medication questions and your symptoms worsen Follow-up/Referrals: Vasiliy Meeks III, MD [Primary Care Provider] - 05/24/21 3:00 pm (one week this is a telehealth apt) Yoav Ospina MD [Physician] - 06/07/21 2:30 pm (2-3 weeks, follow up STEMI, stent in RCA) Diet: Carb Consistent or DM2 and Heart Healthy Addtl Attending Provider Instructions: Medications: - BRILINTA: 90mg daily twice a day, this helps keep stent open, will need to take for a year with aspirin, do not stop until told to do so by big data platform architect - ASPRIN: 81mg daily, will continue this life long - LIPITOR: 80mg daily, this stabilizes plaques in arteries and lowers LDL (bad cholesterol), proven to reduce risk of future heart attack - METOPROLOL: 12.5mg twice a day, this keep heart rate down and controls blood pressure - LISINOPRIL: changed dose to 5mg twice a day, helps prevent remodeling in heart - NITRO: take as needed for chest pain/pressure, can repeat in 15 minutes, if still having chest pain then call ambulance stopped Sildenafil because it can lower blood pressure with the metoprolol and can have a very serious interaction with the Nitro Acute heart attack, treated with stents in right coronary artery echo shows that heart function is preserved, ejection fraction is 55% (normal) but the region of the heart attack is not moving very well very important that you take the above medications as prescribed to help preserve/restore heart function and reduce risk of another heart attack very important that you follow low carbohydrate diet and low fat/low cholesterol diet no strenuous exercise until cleared by cardiology, they may refer you to cardiac rehab Pending Studies at Discharge: No Stand-Alone Forms: [employer], Work/School Release, Smoking Cessation Medications and DC Order Prescriptions: New Brilinta 90 mg Tablet 90 mg PO BID 30 Days Qty: 60 RF: 3 atorvastatin 40 mg Tablet 80 mg PO QAM 30 Days Qty: 60 RF: 3 lisinopril [Zestril] 5 mg Tablet 5 mg PO BID 30 Days Qty: 60 RF: 3 metoprolol tartrate 25 mg Tablet 12.5 mg PO BID 30 Days Qty: 30 RF: 3 nitroglycerin [Nitrostat] 0.4 mg Tablet, Sublingual 0.4 mg sublingual DAILY PRN (Reason: chest pain) Qty: 30 RF: 0 aspirin 81 mg Tablet,Delayed Release (Dr/Ec) 81 mg PO QAM 30 Days Qty: 30 RF: 3 Continued cholecalciferol (vitamin D3) 2,000 unit tablet 2,000 units PO QAM Qty: 30 RF: 0 fluocinonide 0.05 % cream 1 appln topical TID PRN (Reason: ud) Qty: 1 RF: 0 cyanocobalamin (vitamin B-12) 100 mcg tablet 1,000 mcg PO QAM RF: 0 Farxiga 5 mg tablet 5 mg PO DAILY Qty: 30 RF: 5 (DME) pen needle, diabetic [BD Geetha 2nd Gen Pen Needle] 32 gauge x 5/32" needle See Rx Instructions .ROUTE .MEDSUPPLY Qty: 2 RF: 1 insulin aspart U-100 [Novolog Flexpen U-100 Insulin] 100 unit/mL (3 mL) insulin pen See Rx Instructions subcut TID Qty: 45 RF: 3 bupropion HCl 150 mg tablet sustained-release 12 hr 300 mg PO QAM Qty: 180 RF: 3 trazodone 100 mg tablet 100 mg PO HS RF: 0 Levemir FlexTouch U-100 Insuln 100 unit/mL (3 mL) insulin pen 40 unit subcut QPM RF: 0 Discontinued sildenafil (pulm.hypertension) 20 mg tablet 20 mg PO DAILY PRN (Reason: sexual activity) Qty: 90 RF: 6 simvastatin 20 mg tablet 20 mg PO QPM 90 Days Qty: 90 RF: 3 lisinopril 20 mg tablet 20 mg PO QPM Qty: 90 RF: 3 No Action famotidine 20 mg tablet 20 mg PO BID Qty: 180 RF: 3 Discharge Orders: Discharge Order (Routine); Ordered 05/17/21 Ordered By: Justyn Briceño/Other Patient Handouts: A1C, Managing Type 2 Diabetes, Eating Heart- Healthy Foods Admission Data Admit Date/Time: 05/16/21 06:06 Attending Provider: Justyn Hamlin Admit Provider: Yoav Ospina Primary Care Provider: Vasiliy Meeks III Other Providers: Yoav Ospina Other Interventions: Discharge Summary Assessment (RN) Last Done: 05/17/21 09:34 Coding Level of Care Code D/C DAY MANAGEMENT >[address] elevation CA (STEMI) I21.3 Involved coronary artery: unspecified coronary artery COVID-19 virus infection U07.1 Controlled type 2 diabetes mellitus, with long-term current use of insulin E11.9; Z79.4 Hypertension I10 Dyslipidemia E78.5 Stage 3 chronic kidney disease N18.3 Depression F32.9 Vitamin B 12 deficiency E53.8 GERD (gastroesophageal reflux disease) K21.9
== END 2021-05-17 10:16 | disposition home or self-care (01) | DRG 246 ==
LOC: ED 03:09 → CC 05:01 → SUATTDRO 06:06 → 2E 06:06
DX: E11.22 Type 2 diabetes mellitus with diabetic chronic kidney disease; U07.1 COVID-19; E55.9 Vitamin D deficiency, unspecified; Z91.010 Allergy to peanuts; I12.9 Hypertensive chronic kidney disease with stage 1 through stage 4 chronic kidney disease, or unspecified chronic kidney disease; E78.5 Hyperlipidemia, unspecified; Z88.1 Allergy status to other antibiotic agents; F32.9 Major depressive disorder, single episode, unspecified; I25.10 Atherosclerotic heart disease of native coronary artery without angina pectoris; N18.30 Chronic kidney disease, stage 3 unspecified; Z79.899 Other long term (current) drug therapy; K21.9 Gastro-esophageal reflux disease without esophagitis; Z83.3 Family history of diabetes mellitus; Z79.4 Long term (current) use of insulin; Z82.49 Family history of ischemic heart disease and other diseases of the circulatory system; E53.8 Deficiency of other specified B group vitamins; I21.19 ST elevation (STEMI) myocardial infarction involving other coronary artery of inferior wall